=== PATIENT | female | born 1960 | race Asian ===

== ENCOUNTER 2019-11-15 06:13 | Inpatient (IN) | payer OTHER, SELFPAY ==
[~2019-11-15] VITALS: Ht 167.6 cm; Wt 60.4 kg
[2019-11-15 06:30] VITALS: Ht 167.6 cm; Wt 60.4 kg
--- NOTE | 2019-11-15 06:46 | NUR ---
PT BIBA FOR C/O INTERMITTENT CHEST PAIN WITH ASSOCIATED ABD PAIN X1 MONTH. PT REPORTS THE CHEST PAIN BEING SHARP AND NON RADIATING. NON PROVOKED. PAIN DOES NOT INCREASE UPON PALPITATION. PT REPORTS ABD PAIN WITH NAUSEA. DENIES AND DIARRHEA. PT DENIES ANY RECENT FEVER, COUGH OR SOB. STS " I FEEL MORE TIRED, AND HAVE BEEN TO MANY HOSPITALS FOR THIS". PT IS A/O X4. PT RESPS E/U. PT IS ABLE TO FOLLOW ALL COMMANDS APPROPRIATELY. PT IS PLACED ON CM. MSE COMPLETED BY DR BUSH. NO ACD
--- NOTE | 2019-11-15 06:55 | NUR ---
ENCOURAGE PT TO GIVE URINE SPECIMEN. PT STS " I WILL SOON". WILL CONTINUE TO ENCOURAGE
[2019-11-15 07:10] LABS: BASOPHIL % 0.3 % (0-2); PLATELET COUNT 245 x10^3mcL (130-400)
--- NOTE | 2019-11-15 07:15 | NUR ---
RECEIEVED REPORT FROM DINO WELLS FOR CONTINUED CARE OF PATIENT.
[2019-11-15 07:26] LABS: ALBUMIN 3.6 g/dL (3.4-5.0); ALKALINE PHOSPHATASE 59 U/L (46-116); ALT/SGPT 59 U/L (14-59); AST/SGOT 32 U/L (15-37); BILIRUBIN TOTAL 0.41 mg/dL (0.20-1.00); CALCIUM 7.9 mg/dL (8.5-10.1); CARBON DIOXIDE 26.6 mmol/L (21-32); CHLORIDE SERUM 106 mmol/L (98-107); CREATININE SERUM 0.9 mg/dL (0.6-1.0); GFR1 > 60 mL/min; GLUCOSE SERUM 133 mg/dL (74-106); HDL CHOLESTEROL 51 mg/dL (40-60); LIPASE 219 IU/L (73-393); POTASSIUM SERUM 3.1 mmol/L (3.5-5.1); SODIUM SERUM 141 mmol/L (136-145); TOTAL PROTEIN, SERUM 6.6 g/dL (6.4-8.2); TRIGLYCERIDES 145 mg/dL (<150)
[2019-11-15 07:29] LABS: CHOLESTEROL 225 mg/dL (<200); CHOLESTEROL/HDL RATIO 4.4
[2019-11-15 07:30] LABS: T3 TOTAL 0.97 ng/mL
[2019-11-15 07:38] LABS: FREE T4 1.28 ng/dL (0.76-1.46); T4(THYROXINE) 7.8 ug/dL (4.7-13.3)
--- NOTE | 2019-11-15 08:36 | NUR ---
MEDICATED PER MD ORDERS- SEE EMR
[2019-11-15 08:41] LABS: microscopic required? NO
--- NOTE | 2019-11-15 09:00 | NUR ---
REVIEWED PATIENTS HOME MEDICATION REGIME, VSS, NAD NOTED BREATHING EVEN AND UNLABORED. PT HAS NO NEEDS AT THIS TIME. WILL CONTINUE TO MONITOR.
[2019-11-15 09:46] LABS: UA SPECIFIC GRAVITY 1.015 (1.005-1.035); urine erythrocyte NEGATIVE (NEGATIVE)
--- NOTE | 2019-11-15 11:00 | NUR ---
PATIENT AMBULATED TO BATHROOM WITHOUT ASSISTANCE. GAIT STEADY. WILL CONTINUE TO MONITOR.
[2019-11-15 11:07] LABS: MAGNESIUM 2.5 mg/dL (1.8-2.4); PHOSPHOROUS 3.2 mg/dL (2.5-4.9)
[2019-11-15] MEDS ORDERED: ATORVASTATIN CA20 M1 PO (11:17)
[2019-11-15] MEDS ORDERED: PANTOPRAZOLE SO40 M1 PO (11:17)
[2019-11-15] MEDS ORDERED: ZOLOFT25 MG PO (11:18)
[2019-11-15] MEDS ORDERED: UNISOM25 M1 PO (11:18)
[2019-11-15] MEDS ORDERED: METOPROLOL TART25 M1 PO (11:18)
--- NOTE | 2019-11-15 12:37 | NUR ---
PATIENT SITTING UP ON GURNEY EATING LUNCH. NO SS OF DISTRESS NOTED. WILL CONTINUE TO MONITOR.
--- NOTE | 2019-11-15 13:29 | NUR ---
MEDICATED PER MD ORDERS. SEE EMR
--- NOTE | 2019-11-15 14:32 | NUR ---
REPORT PROVIDED TO DINO SANTOS FOR CONTINUED CARE OF PATIENT.
[2019-11-15 15:11] VITALS: BP 118/78
--- NOTE | 2019-11-15 15:28 | NUR ---
RECEIVED PATIENT WALKING FROM [facility] TO BED, AA/O X4, SPEAK VERY GOOD IVOR[place]. APPEAR ANXIOUS. GET PT COMFORTABLE IN BED, ORIENTED TO CALL LIGHT. PLACE TELE #[id number] NSR, HR 78 NOTED. VSS. PT REQUEST FOR MED TO CALM HER DOWN, INFORM PT WILL ASK DOCTOR.
--- NOTE | 2019-11-15 16:12 | NUR ---
GAVE ATIVAN 0.5MG PO FOR ANXIETY. BS 102 NO COVERAGE NEEDED. PATIENT ATE SOME FROM HER LUNCH TRAY AND TOLERATED. CALL LIGHT WITHIN REACH.
--- NOTE | 2019-11-15 17:23 | NUR ---
PT IN BED DESCRIBED HER PAIN COME AND GO, RADIATED TO BACK 09/12. NORCO 1 TAB PO GIVEN AND TOLERATED. CONT TO MONITOR.
--- NOTE | 2019-11-15 19:27 | NUR ---
PT RESTING IN BED NO DISTRESS NOTED, REPORT BACK PAIN IS BETTER 2/10. NEEDS MET. CALL LIGHT WITHIN REACH.
[2019-11-15 20:29] VITALS: BP 126/77
--- NOTE | 2019-11-15 21:08 | NUR ---
PATIENT STATE AFTER EATING DINNER HAVE HEARTBURN AND PALPITATION. TELE SR 76 NOTED. GAVE NORCO 1 TAB P AND COLACE, WILL CONT TO MONITOR. BS 99 NO COVERAGE NEEDED. CALL LIGHT WITHIN REACH.
--- NOTE | 2019-11-15 22:17 | NUR ---
PT REPORT HEARTBURN SUBSIDED, GAVE ATIVAN 0.5MG PO FOR ANXIETY. NEEDS MET. CALL LIGHT WITHIN REACH.
--- NOTE | 2019-11-15 23:50 | NUR ---
PT SLEEPING AT THIS TIME, TELE NSR W/ HR 96 NOTED. CONT TO MONITOR.
--- NOTE | 2019-11-16 01:14 | NUR ---
RESUMED CONTINUITY OF CARE OF PT. BREATHING IS EVEN AND UNLABORED ON RA. NO RESP DISTRESS NOTED. BED IN LOWEST POSITION. CALL LIGHT WITHIN REACH. WILL CONTINUE TO MONITOR.
[2019-11-16 05:39] VITALS: BP 132/76
--- NOTE | 2019-11-16 07:25 | NUR ---
PT RESTED COMFORTABLY THROUGHOUT THE NIGHT WITH NO ACUTE EVENTS OCCURRING DURING THE SHIFT. COMFORT AND SAFETY MEASURES MAINTAINED. ALL NEEDS ASSESSED AND ATTENDED TO. WILL CONTINUE TO MONITOR AND ENDORSE CARE TO DAY SHIFT NURSE.
--- NOTE | 2019-11-16 07:30 | NUR ---
RECEIVED PATIENT. IN BED, SLEEPING. EASILY AROUSABLE. NO ACUTE RESP DISTRESS NOTED. REMAINS ON ROOM AIR. NO C/O PAIN AT THIS TIME. IV INTACT AND PATENT. NO ERYTHEMA/SWELLING NOTED. SAFETY PREC IN PLACE. CALL LIGHT WITHIN REACH. WILL CONITNUE TO MONITOR.
[2019-11-16 08:15] LABS: BASOPHIL % 0.3 % (0-2); PLATELET COUNT 223 x10^3mcL (130-400); RED CELL DISTRIBUTION WIDTH 12.8 % (11.5-14.5)
[2019-11-16 08:37] LABS: CALCIUM 8.3 mg/dL (8.5-10.1); CHLORIDE SERUM 106 mmol/L (98-107); CREATININE SERUM 0.8 mg/dL (0.6-1.0); GFR1 > 60 mL/min; GLUCOSE SERUM 102 mg/dL (74-106); POTASSIUM SERUM 3.8 mmol/L (3.5-5.1); SODIUM SERUM 141 mmol/L (136-145)
[2019-11-16 09:35] VITALS: BP 116/74
--- NOTE | 2019-11-16 12:00 | NUR ---
PATIENT STABLE. NO ACUTE CHANGES. WILL CONTINUE TO MONITOR.
[2019-11-16 12:48] VITALS: BP 113/70
[2019-11-16] MEDS ORDERED: ATORVASTATIN CA40 M1 PO (13:01)
[2019-11-16] MEDS ORDERED: ASPIRIN CHILDRE81 MG PO (13:01)
[2019-11-16 13:28] VITALS: BP 113/70
--- NOTE | 2019-11-16 14:55 | NUR ---
DISHARGE HOME INSTRUCTIONS GIVEN TO PATIENT. ALL QUESTIONS AND CONCERNS ADDRESSED. D.C IV. TOLERATED WELL. CATHETER INTACT. APPLIED PRESSURE. GAUZE AND TAPE IN PLACE. ID BANDS REMOVED. TELE MONITOR #[id number] RETURNED TO TELE STATION. ALL NEEDS MET. INSTRUCTED TO USE CALL LIGHT WHEN READY TO LEAVE THE UNIT.
--- NOTE | 2019-11-16 15:37 | NUR ---
PATIENT IS BEING DISCHARGED IN STABLE CONDITION. NO ACUTE DISTRESS NOTED. NO C/O PAIN. ALL NEEDS MET. ACCOMPANIED TO LOBBY BY RN.
== END 2019-11-16 15:40 | disposition home or self-care (01) | DRG 203 ==
LOC: ED 06:13 → DU 10:13
PROVIDERS: Specialist; ADMIT Family Medicine; ATTEND Family Medicine
DX: R07.89 Other chest pain (principal); E11.9 Type 2 diabetes mellitus without complications; F41.9 Anxiety disorder, unspecified; K21.9 Gastro-esophageal reflux disease without esophagitis; E78.00 Pure hypercholesterolemia, unspecified; I10 Essential (primary) hypertension; F39 Unspecified mood [affective] disorder; E78.5 Hyperlipidemia, unspecified; Z79.899 Other long term (current) drug therapy
CPT/HCPCS: 82962; 83880; 84439; G0378; Q0092; Q9967; U0003-CS